=== PATIENT | male | born 1970 | race Caucasian/White ===

== ENCOUNTER 2018-08-23 15:08 | Emergency (ER) | payer MEDICAID, OTHER ==
[~2018-08-23] VITALS: Ht 170.2 cm; Wt 131.1 kg
[~2018-08-23 15:08] MED LIST: METO50TE2 PO; OMEG1SGL6 PO; ORE25 PO
[2018-08-23 15:14] VITALS: BP 134/75
--- NOTE | 2018-08-23 15:26 | NUR ---
EKG DONE . REPORTED DR MORAN. PT AMB TO B. WAITING FOR BED AWAILABLE.
--- NOTE | 2018-08-23 16:26 | NUR ---
Jaclyn novoa in [facility] - 08/23/18 at 1627 by [email or web address] PT TO BED 3
--- NOTE | 2018-08-23 16:27 | NUR ---
PT TO BED 8
--- NOTE | 2018-08-23 16:30 | NUR ---
C/O HEADACHE, LEFT CHEST PAIN RADIATING TO LEFT SHOULDER SINCE YESTERDAY.DENIES N/V/D. MED HX:HTN MED: PT CAN'T REMEMBEER
[2018-08-23] MEDS ORDERED: ASPIRIN 325 MG TAB PO ONE (17:40)
[2018-08-23] MEDS ORDERED: NITROGLYCERIN 2% 1 GM PKT TP ONE (17:40)
[2018-08-23] MEDS ORDERED: KETOROLAC 30 MG/ML VIAL IVP ONE (17:40)
[2018-08-23 18:46] LABS: BASOPHILS % (AUTO) 0.4 % (0.0-2.0); EOSINOPHILS # (AUTO) 0.2 K/uL (0-0.4); HEMATOCRIT 41.6 % (36-52); HEMOGLOBIN 13.5 g/dL (12.0-18.0); LYMPHOCYTES # (AUTO) 3.5 K/uL (2.0-11.5); LYMPHOCYTES % (AUTO) 34.6 % (20.5-51.1); MEAN CORPUSCULAR HEMOGLOBIN 28 pg (27-31); MEAN CORPUSCULAR HGB CONC 33 g/dL (33-37); MEAN CORPUSCULAR VOLUME 85.6 fL (80-94); MONOCYTES # (AUTO) 0.6 K/uL (0.8-1.0); MONOCYTES % (AUTO) 5.9 % (1.7-9.3); NEUTROPHILS # (AUTO) 5.8 K/uL (1.8-7.7); NEUTROPHILS % (AUTO) 57.1 % (42.2-75.2); PLATELET COUNT (AUTO) 224 K/uL (140-450); RED BLOOD CELL COUNT(AUTO) 4.85 MIL/uL (4.20-6.10); WHITE BLOOD COUNT (AUTO) 10.1 K/uL (4.8-10.8)
[2018-08-23 19:07] LABS: PROTHROMBIN TIME 9.9 secs (10.8-13.4)
[2018-08-23 19:15] LABS: D-DIMER < 100 ng/ml (0-400)
--- NOTE | 2018-08-23 19:17 | NUR ---
REPORT GIVEN TO JERRY VALLES
[2018-08-23 19:19] LABS: BARBITURATE, URINE NEGATIVE ng/ml (NEG <=200); BENZODIAZEPINE, URINE NN ng/mL (NEG <=200); CANNABINOID, URINE NEGATIVE ng/mL (NEG <=50); COCAINE, URINE NEGATIVE ng/mL (NEG <=300); OPIATE, URINE NEGATIVE ng/mL (NEG <=2000); PHENCYCLIDINE SCREEN,URINE NEGATIVE ng/mL (NEG <=25)
[2018-08-23 19:19] LABS: ANION GAP 11.9 (8-16); POTASSIUM 3.9 mmol/L (3.5-5.1)
[2018-08-23 19:20] LABS: ALBUMIN 3.5 g/dL (3.4-5.0); TOTAL BILIRUBIN 0.2 mg/dL (0.0-1.0)
[2018-08-23 19:22] LABS: APPEARANCE,URINE CLEAR (CLEAR); BILIRUBIN,URINE NEGATIVE (NEGATIVE); BLOOD, URINE TRACE-I (NEGATIVE); COLOR,URINE YELLOW (YELLOW); LEUKOCYTE ESTERASE ,URINE NEGATIVE (NEGATIVE); NITRITE, URINE NEGATIVE (NEGATIVE); PH,URINE 6.5 (5.0-9.0); UGLUCOSE NEGATIVE (NEGATIVE)
[2018-08-23 19:36] LABS: RBC,URINE 0-5 (RARE) /HPF (0-5); WBC,URINE 0-5 (RARE) /HPF (0-5)
[2018-08-23 20:09] VITALS: BP 127/78
== END 2018-08-23 20:07 | disposition home or self-care (01) ==
LOC: MED 15:08
DX: R07.89 Other chest pain (principal); I10 Essential (primary) hypertension; E66.01 Morbid (severe) obesity due to excess calories; Z68.42 Body mass index [BMI] 45.0-49.9, adult; Z79.899 Other long term (current) drug therapy
CPT/HCPCS: 36415; 71045; 80053; 80305; 81001; 83735; 83880; 84484; 85025; 85379; 85610; 85730; 93005; 96374; 99284; G0482; J1885; Q0092

== ENCOUNTER 2019-04-20 13:44 | Emergency (ER) | payer OTHER ==
[~2019-04-20] VITALS: Ht 170.2 cm; Wt 127.0 kg
[2019-04-20 13:46] VITALS: BP 172/84
--- NOTE | 2019-04-20 13:55 | NUR ---
PT TAKEN TO BED 8.
--- NOTE | 2019-04-20 13:59 | NUR ---
49M C/O RT GROIN PAIN RADIATING TO R LEG X 1 MONTH. PAIN IS CONSTANT. DENIES SWELLING OR ERYTHEMA OVER AREA. DENIES LIFTING HEAVY THINGS. NAD. MED HX:HTN, UMBILICAL HERNIA SURGERY 2 YEARS AGO
--- NOTE | 2019-04-20 15:32 | NUR ---
US tech at bedside
[2019-04-20 15:48] LABS: APPEARANCE,URINE CLEAR (CLEAR); BILIRUBIN,URINE NEGATIVE (NEGATIVE); BLOOD, URINE 1+ (NEGATIVE); COLOR,URINE YELLOW (YELLOW); LEUKOCYTE ESTERASE ,URINE NEGATIVE (NEGATIVE); NITRITE, URINE NEGATIVE (NEGATIVE); UGLUCOSE NEGATIVE (NEGATIVE)
[2019-04-20 16:10] LABS: RBC,URINE 0-5 /HPF (0-5)
[2019-04-20 16:11] LABS: CALCIUM OXALATE CRYSTALS,UR 0-10 /HPF (None Seen); WBC,URINE NONE SEEN /HPF (0-5)
[2019-04-20 16:50] VITALS: BP 127/76
== END 2019-04-20 16:50 | disposition home or self-care (01) ==
LOC: MED 13:44
DX: N43.41 Spermatocele of epididymis, single (principal); I10 Essential (primary) hypertension; Z79.899 Other long term (current) drug therapy
CPT/HCPCS: 76870; 81001; 99284; Q0092

== ENCOUNTER 2019-09-06 14:19 | Emergency (ER) | payer OTHER ==
[~2019-09-06] VITALS: Ht 177.8 cm; Wt 127.0 kg
[2019-09-06 14:28] VITALS: BP 154/91
--- NOTE | 2019-09-06 14:56 | NUR ---
49 Y/O M C/C ABDOMINAL LLQ/BACK PAIN X 2 DAYS. PER PT PAIN 9/10, PRESSURE SENSATION, BACK PAIN RADIATING TO ABDOMEN. PT DENIES TRAUMA OR BURNING SENSATION WHEN URINATING. PT NKA. HX HTN. RX DOES NOT RECALL. NO N/V/D. SIDE RAIL X1. FAMILY AT BEDSIDE.
--- NOTE | 2019-09-06 15:01 | NUR ---
PT AMBULATED TO RESTROOM TO PROVIDE URINE
[2019-09-06] MEDS ORDERED: KETOROLAC 30 MG/ML VIAL IVP ONE (15:20)
--- NOTE | 2019-09-06 15:50 | NUR ---
PT TAKEN TO CT VIA JASMIN
[2019-09-06 16:07] LABS: BASOPHILS % (AUTO) 0.5 % (0.0-2.0); EOSINOPHILS # (AUTO) 0.5 K/uL (0-0.4); EOSINOPHILS % (AUTO) 6.1 % (0.0-4.0); HEMATOCRIT 43.5 % (36-52); LYMPHOCYTES # (AUTO) 2.2 K/uL (2.0-11.5); LYMPHOCYTES % (AUTO) 29.3 % (20.5-51.1); MEAN CORPUSCULAR HEMOGLOBIN 29 pg (27-31); MEAN CORPUSCULAR HGB CONC 34 g/dL (33-37); MEAN CORPUSCULAR VOLUME 82.7 fL (80-94); MONOCYTES # (AUTO) 0.5 K/uL (0.8-1.0); MONOCYTES % (AUTO) 6.1 % (1.7-9.3); NEUTROPHILS # (AUTO) 4.3 K/uL (1.8-7.7); PLATELET COUNT (AUTO) 222 K/uL (140-450); RED BLOOD CELL COUNT(AUTO) 5.26 MIL/uL (4.20-6.10); RED CELL DISTRIBUTION WIDTH 13.8 % (11.6-13.7); WHITE BLOOD COUNT (AUTO) 7.4 K/uL (4.8-10.8)
[2019-09-06 16:17] LABS: APPEARANCE,URINE CLEAR (CLEAR); BILIRUBIN,URINE NEGATIVE (NEGATIVE); BLOOD, URINE 1+ (NEGATIVE); COLOR,URINE YELLOW (YELLOW); LEUKOCYTE ESTERASE ,URINE NEGATIVE (NEGATIVE); NITRITE, URINE NEGATIVE (NEGATIVE); UGLUCOSE NEGATIVE (NEGATIVE)
[2019-09-06 16:28] LABS: ALBUMIN 3.6 g/dL (3.4-5.0); ANION GAP 6.4 (8-16); POTASSIUM 3.4 mmol/L (3.5-5.1); TOTAL BILIRUBIN 0.4 mg/dL (0.0-1.0)
--- NOTE | 2019-09-06 16:59 | NUR ---
PT RESTING IN BED, SIDE RAIL X1
[2019-09-06 17:15] LABS: WBC,URINE 0-5 /HPF (0-5)
[2019-09-06] MEDS ORDERED: cefTRIAXone 1,000 MG VIAL ONE (18:19)
[2019-09-06 18:57] VITALS: BP 145/78
--- NOTE | 2019-09-06 18:57 | NUR ---
Patient discharged with v/s stable. Written and verbal after care instructions given and explained. Patient alert, oriented and verbalized understanding of instructions. Ambulatory with steady gait. All questions addressed prior to discharge. ID band removed. Patient advised to follow up with PMD. Rx of NAPROSYN,CEPHALEXIN given. Patient educated on indication of medication including possible reaction and side effects. Opportunity to ask questions provided and answered.
== END 2019-09-06 18:57 | disposition home or self-care (01) ==
LOC: MED 14:19
DX: N30.90 Cystitis, unspecified without hematuria (principal); I10 Essential (primary) hypertension; Z98.890 Other specified postprocedural states; Z79.899 Other long term (current) drug therapy
CPT/HCPCS: 36415; 74176; 80053; 81001; 83605; 85025; 87040; 96365; 96375; 99284; J0696; J1885

== ENCOUNTER 2019-09-23 16:15 | Emergency (ER) | payer OTHER ==
[~2019-09-23] VITALS: Ht 175.3 cm; Wt 131.1 kg
[2019-09-23 16:23] VITALS: BP 179/93
[2019-09-23] MEDS ORDERED: KETOROLAC 60 MG/2 ML VIAL IM ONE (16:45)
--- NOTE | 2019-09-23 16:50 | NUR ---
49 Y/O MALE PRESENTS TO ER WITH C/O POSTERIOR LEFT LEG PAIN THAT RADIATES TO THE FOOT. 9/10 PAIN. PT STATES HE HAS HAD PREVIOUS SCIATIC NERVE PAIN IN THE LEFT LEG. PT STATES HE TOOK IBUPROFEN X2 THIS MORNING AND AFTERNOON. DENIES HEADACHE, N/V/D, SOB. SIDE RAIL X1, WILL CONTINUE TO MONITOR PMH: HTN NKDA
--- NOTE | 2019-09-23 17:31 | NUR ---
Patient discharged with v/s stable. Written and verbal after care instructions given and explained. Patient alert, oriented and verbalized understanding of instructions. Ambulatory with steady gait. All questions addressed prior to discharge. ID band removed. Patient advised to follow up with PMD. Rx of IBUPROFEN, TRAMADOL given. Patient educated on indication of medication including possible reaction and side effects. Opportunity to ask questions provided and answered.
[2019-09-23 17:35] VITALS: BP 179/93
== END 2019-09-23 17:31 | disposition home or self-care (01) ==
LOC: MED 16:15
DX: M54.32 Sciatica, left side (principal); I10 Essential (primary) hypertension; Z79.899 Other long term (current) drug therapy
CPT/HCPCS: 96372; 99283; J1885

== ENCOUNTER 2020-10-24 09:35 | Emergency (ER) | payer OTHER ==
[~2020-10-24] VITALS: Ht 172.7 cm; Wt 106.6 kg
--- NOTE | 2020-10-24 09:37 | NUR ---
PT WHEELED TO BED 5
[2020-10-24 09:43] VITALS: BP 140/69
--- NOTE | 2020-10-24 09:50 | NUR ---
DR. HARTMAN AT BEDSIDE EVALUATING PT.
--- NOTE | 2020-10-24 09:50 | NUR ---
50 Y/M BIB SELF FOR L HIP PAIN RADIATES TO LEG AND LOW LEFT FLANK. PT ALSO REPORTS ON AND OFF NUMBNESS. PAIN IS SHARP AND CONSTANT. REPORTS TAKING MOTRIN LAST NIGHT FOR PAIN AND NO RELIEF. PT DENIES INJURY OR TRAUMA. DENIES UTI SX. PMH-HTN, DM, HLD, NKDA RX- IBUPROFEN, LISINOPRIL, METFORMIN NKDA
--- NOTE | 2020-10-24 09:55 | NUR ---
PT PLACED ON PULSE OX AND 3 LEAD ECG
[2020-10-24] MEDS ORDERED: ONDANSETRON 4 MG ODT PO ONE (10:00)
[2020-10-24] MEDS ORDERED: MORPHINE SULFATE 4 MG/ML SYR IM ONE ×2 (10:00→10:50)
[2020-10-24] MEDS ORDERED: KETOROLAC 60 MG/2 ML VIAL IM ONE (12:05)
--- NOTE | 2020-10-24 12:05 | NUR ---
Dr. East is reevaluating patient at bedside.
--- NOTE | 2020-10-24 12:34 | NUR ---
PATIENT TAKEN TO CT VIA GURNEY.
--- NOTE | 2020-10-24 13:46 | NUR ---
Dr. East is reevaluating the patient at bedside.
[2020-10-24] MEDS ORDERED: ACET-8386 PO (14:13)
[2020-10-24] MEDS ORDERED: NAPR-54 PO (14:13)
[2020-10-24 14:28] VITALS: BP 121/63
--- NOTE | 2020-10-24 14:28 | NUR ---
Patient discharged with v/s stable. Written and verbal after care instructions given and explained. Patient alert, oriented and verbalized understanding of instructions. Wheel Chair Assisted with to car. All questions addressed prior to discharge. ID band removed. Patient advised to follow up with PMD. Rx of Naprosyn 500mg 1 tab, PO, BID, Hydrocodone-Acetaminophen 5-325mg, 1 tab q6hr PRN given. Patient educated on indication of medication including possible reaction and side effects. Opportunity to ask questions provided and answered.
== END 2020-10-24 14:28 | disposition home or self-care (01) ==
LOC: MED 09:35
DX: M54.42 Lumbago with sciatica, left side (principal); M51.36 Other intervertebral disc degeneration, lumbar region
CPT/HCPCS: 72131; 72192; 96372; 99285; J1885; J2270; Q0162

== ENCOUNTER 2023-04-10 11:53 | Day surgery (SDC) | payer OTHER ==
[~2023-04-10] VITALS: Ht 165.1 cm; Wt 95.3 kg
[~2023-04-10 11:53] MED LIST changes: +ACET-8905 PO; +NAPR-54 PO
[2023-04-10] MEDS ORDERED: MIDAZOLAM 2 MG/2 ML VIAL ONE (13:45)
[2023-04-10] MEDS ORDERED: LIDOCAINE 2% 100 MG/5 ML UJET TP ONE (13:46)
[2023-04-10] MEDS ORDERED: fentaNYL citrate 0.05 MG/ML VIAL ONE (13:46)
== END 2023-04-10 15:05 | disposition home or self-care (01) ==
LOC: MDS 11:53 → MMU 11:57 → MDS 15:05
PROVIDERS: ATTEND Internal Medicine Gastroenterology
DX: Z12.11 Encounter for screening for malignant neoplasm of colon (principal); K63.5 Polyp of colon; K57.30 Diverticulosis of large intestine without perforation or abscess without bleeding; E03.9 Hypothyroidism, unspecified; E78.00 Pure hypercholesterolemia, unspecified; E11.9 Type 2 diabetes mellitus without complications; E66.9 Obesity, unspecified; K21.9 Gastro-esophageal reflux disease without esophagitis; Z79.84 Long term (current) use of oral hypoglycemic drugs; Z79.899 Other long term (current) drug therapy; Z68.32 Body mass index [BMI] 32.0-32.9, adult
CPT/HCPCS: 45385; 82948; J3010; J2250